=== PATIENT | female | born 1995 | race Caucasian/White ===

== ENCOUNTER 2016-05-16 10:34 | Emergency (ER) | payer OTHER ==
--- NOTE | 2016-05-16 12:32 | ED CLINICAL REPORT ---
Clinical Report - Physicians/Mid Levels [facility] [address] [place] [address] 05/16/2016 10:34 Patient: APRIL GRAMAJO Time Seen: 12:02 May 16 2016. Arrived- By private vehicle. Historian- patient. HISTORY OF PRESENT ILLNESS Chief Complaint: DYSURIA. This started today and still present. The patient has had pain with urination and urgency of urination. The patient has had urinary frequency. Last normal menstrual period was 1 week ago. Sexually active- unprotected sex and heterosexual. Not possible or confirmed. (patient reports dysuria, sensation of incomplete voiding over the last 6 hours. History of similar. Denies any back pain. Denies fevers or chills. Denies any vaginal bleeding.). REVIEW OF SYSTEMS No diarrhea, headache or fever. All systems otherwise negative, except as recorded above. SOCIAL HISTORY Never smoker. No drug use. ADDITIONAL NOTES The nursing notes have been reviewed. PHYSICAL EXAM Vital Signs: 05/16/2016 10:48 BP: 109/64. HR: 73. RR: 18. O2 saturation: 99%. Temp: 98.6 F. Appearance: Alert. No acute distress. HEENT: Normal external inspection. ENT: Pharynx normal. Neck: Neck supple. CVS: Heart sounds normal. Rate normal. Respiratory: No respiratory distress. Breath sounds normal. Chest nontender. Abdomen: Soft and nontender. No abdominal tenderness. The bowel sounds are not abnormal. Neuro: Oriented X 3. LABS, X-RAYS, AND EKG Laboratory Tests: UA-Culture if indicated: (AYAD: 05/16/2016 10:45) ( MsgRcvd 05/16/2016 11:49) Final results Test Result Flag Units (Reference) URINE COLOR YELLOW URINE APPEARANCE CLEAR URINE GLUCOSE NEGATIVE (NEGATIVE) URINE BILIRUBIN NEGATIVE (NEGATIVE) URINE KETONE NEGATIVE (NEGATIVE) URINE SPECIFIC GRAVITY 1.025 (1.010-1.030) URINE PH 6.0 (5.0-8.0) URINE PROTEIN NEGATIVE (NEGATIVE) URINE UROBILINOGEN 0.2 EU/dL (0.2-1.0) URINE NITRITE NEGATIVE (NEGATIVE) URINE BLOOD TRACE-INTACT (NEGATIVE) URINE LEUK ESTERASE NEGATIVE (NEGATIVE) URINE RBC 1-3 rbc/hpf (0-1) URINE WBC 10-15 wbc/hpf (0-1) URINE EPITHELIAL CELLS 3-5 EPI/hpf (0-5) URINE BACTERIA FEW (1+) (NONE SEEN) URINE COMMENT CULTURE INDICATED URINE CULTURES ARE SET-UP BASED ON THE FOLLOWING CRITERIA:POSITIVE NITRITEPOSITIVE LEUKOCYTE ESTERASEGREATER THAN 10 WHITE BLOOD CELLSMODERATE (2+) OR GREATER BACTERIA Urine: (AYAD: 05/16/2016 10:45) ( MsgRcvd 05/16/2016 11:34) Final results Test Result Flag Units (Reference) URINE NEGATIVE . PROGRESS AND PROCEDURES Course of Care: Here in the ER patient with no CVA tenderness, afebrile, abdomen soft non tender. Negative . Signs of acute cystitis. Patient stable. Fall afebrile.. Patient is stable. Physical exam findings are improved. Symptoms better. Patient/family counseled. Disposition: Discharged. CLINICAL IMPRESSION Acute urinary tract infection with cystitis. INSTRUCTIONS Warnings: Further evaluation is necessary. Prescription Medications: Pyridium 200 mg: take 1 orally every 8 hours as needed for urinary problems. Dispense six (6). No refills. Substitution is permissible. Macrobid 100 mg: Take 1 capsule orally every 12 hours for 7 days. No refills. Substitution is permissible. Follow-up: Follow up with your doctor in three days. (Electronically signed by Zuly Parra P.A.-C 05/16/2016 12:59)
--- NOTE | 2016-05-16 12:32 | ED NURSING NOTES ---
Clinical Report - Nurses [facility] [address] [place] [address] 05/16/2016 10:34 Patient: APRIL GRAMAJO TRIAGE Triage time 10:48. Acuity: LEVEL 3. Chief Complaint: PAINFUL URINATION. Alert. No acute distress. --10:52 Akbar Washburn R.N. 10:48 05/16/16. BP: 109/64. HR: 73. RR: 18. O2 saturation: 99%. Temp: 98.6 F. Pain level now 01/12. --10:52 Akbar Washburn R.N. Weight: 44.4 kg stated. Height/Length: 60 inches Per Patient. BMI: 19.1. --10:50 Akbar Washburn R.N. Medications LamoTRIgine ER Oral. --10:50 Akbar Washburn R.N. Allergies No Known Drug Allergy. --10:49 Akbar Washburn R.N. History Arrived by private vehicle. Historian: patient. This started just prior to arrival. SOCIAL HX: No alcohol use or drug use. FALL RISK ASSESSMENT: Fall risk assessment completed. No fall risk identified. NUTRITIONAL RISK ASSESSMENT: The nutritional risk assessment revealed no deficiencies. FUNCTIONAL ASSESSMENT: Functional assessment: no impairments noted. LEARNING NEEDS ASSESSMENT: The learning needs assessment revealed no barriers. --10:52 Akbar Washburn R.N. PROBLEMS: Abdominal Pain. Alcohol Intoxication. Vomiting. Pharyngitis. Immunizations. LNMP - Last Normal Menstrual Period. --10:51 Akbar Washburn R.N. Interventions ID band on patient. --10:52 Akbar Washburn R.N. PHYSICAL ASSESSMENT GENERAL / NEURO / PSYCH: Alert. Oriented X 4. Appears in no acute distress. RESPIRATORY: Respirations not labored. GI / : Abdomen soft. SKIN: Skin is warm and dry. --10:52 Akbar Washburn R.N. NURSING PROGRESS NOTES Two patient identifiers checked. Call light placed in reach. Bed placed in lowest position. --10:52 Akbar Washburn R.N. ( Patient advised of reason for wait). --11:43 Akbar Washburn R.N. 12:37 05/16/2016 Macrobid PO Capsules 100 mg given. --12:42 Akbar Washburn R.N. 12:37 05/16/2016 Pyridium (Phenazopyridine HCl) PO Tablets 100 mg given. --12:42 Akbar Washburn R.N. DISPOSITION / DISCHARGE 12:41 05/16/16. BP: 110/64. HR: 70. RR: 20. O2 saturation: 100%. Temp: 98.6 F. Pain level now 07/13. --12:42 Akbar Washburn R.N. Condition at departure: unchanged. ( Patient given antibiotics and discharge instructions. Pt. states understands.). --12:43 Akbar Washburn R.N. Locked/Released at 05/16/2016 12:44 by Akbar Washburn R.N.
--- NOTE | 2016-05-16 12:32 | ED NURSING NOTES ---
Clinical Report - Nurses [facility] [address] [place] [address] 05/16/2016 10:34 Patient: APRIL GRAMAJO TRIAGE Triage time 10:48. Acuity: LEVEL 3. Chief Complaint: PAINFUL URINATION. Alert. No acute distress. --10:52 Akbar Washburn R.N. 10:48 05/16/16. BP: 109/64. HR: 73. RR: 18. O2 saturation: 99%. Temp: 98.6 F. Pain level now 01/12. --10:52 Akbar Washburn R.N. Weight: 44.4 kg stated. Height/Length: 60 inches Per Patient. BMI: 19.1. --10:50 Akbar Washburn R.N. Medications LamoTRIgine ER Oral. --10:50 Akbar Washburn R.N. Allergies No Known Drug Allergy. --10:49 Akbar Washburn R.N. History Arrived by private vehicle. Historian: patient. This started just prior to arrival. SOCIAL HX: No alcohol use or drug use. FALL RISK ASSESSMENT: Fall risk assessment completed. No fall risk identified. NUTRITIONAL RISK ASSESSMENT: The nutritional risk assessment revealed no deficiencies. FUNCTIONAL ASSESSMENT: Functional assessment: no impairments noted. LEARNING NEEDS ASSESSMENT: The learning needs assessment revealed no barriers. --10:52 Akbar Washburn R.N. PROBLEMS: Abdominal Pain. Alcohol Intoxication. Vomiting. Pharyngitis. Immunizations. LNMP - Last Normal Menstrual Period. --10:51 Akbar Washburn R.N. Interventions ID band on patient. --10:52 Akbar Washburn R.N. PHYSICAL ASSESSMENT GENERAL / NEURO / PSYCH: Alert. Oriented X 4. Appears in no acute distress. RESPIRATORY: Respirations not labored. GI / : Abdomen soft. SKIN: Skin is warm and dry. --10:52 Akbar Washburn R.N. NURSING PROGRESS NOTES Two patient identifiers checked. Call light placed in reach. Bed placed in lowest position. --10:52 Akbar Washburn R.N. ( Patient advised of reason for wait). --11:43 Akbar Washburn R.N. 12:37 05/16/2016 Macrobid PO Capsules 100 mg given. --12:42 Akbar Washburn R.N. 12:37 05/16/2016 Pyridium (Phenazopyridine HCl) PO Tablets 100 mg given. --12:42 Akbar Washburn R.N. DISPOSITION / DISCHARGE 12:41 05/16/16. BP: 110/64. HR: 70. RR: 20. O2 saturation: 100%. Temp: 98.6 F. Pain level now 07/13. --12:42 Akbar Washburn R.N. Condition at departure: unchanged. ( Patient given antibiotics and discharge instructions. Pt. states understands.). --12:43 Akbar Washburn R.N. Locked/Released at 05/16/2016 12:44 by Akbar Washburn R.N.
--- NOTE | 2016-05-16 12:32 | ED CLINICAL REPORT ---
Clinical Report - Physicians/Mid Levels [facility] [address] [place] [address] 05/16/2016 10:34 Patient: APRIL GRAMAJO Time Seen: 12:02 May 16 2016. Arrived- By private vehicle. Historian- patient. HISTORY OF PRESENT ILLNESS Chief Complaint: DYSURIA. This started today and still present. The patient has had pain with urination and urgency of urination. The patient has had urinary frequency. Last normal menstrual period was 1 week ago. Sexually active- unprotected sex and heterosexual. Not possible or confirmed. (patient reports dysuria, sensation of incomplete voiding over the last 6 hours. History of similar. Denies any back pain. Denies fevers or chills. Denies any vaginal bleeding.). REVIEW OF SYSTEMS No diarrhea, headache or fever. All systems otherwise negative, except as recorded above. SOCIAL HISTORY Never smoker. No drug use. ADDITIONAL NOTES The nursing notes have been reviewed. PHYSICAL EXAM Vital Signs: 05/16/2016 10:48 BP: 109/64. HR: 73. RR: 18. O2 saturation: 99%. Temp: 98.6 F. Appearance: Alert. No acute distress. HEENT: Normal external inspection. ENT: Pharynx normal. Neck: Neck supple. CVS: Heart sounds normal. Rate normal. Respiratory: No respiratory distress. Breath sounds normal. Chest nontender. Abdomen: Soft and nontender. No abdominal tenderness. The bowel sounds are not abnormal. Neuro: Oriented X 3. LABS, X-RAYS, AND EKG Laboratory Tests: UA-Culture if indicated: (AYAD: 05/16/2016 10:45) ( MsgRcvd 05/16/2016 11:49) Final results Test Result Flag Units (Reference) URINE COLOR YELLOW URINE APPEARANCE CLEAR URINE GLUCOSE NEGATIVE (NEGATIVE) URINE BILIRUBIN NEGATIVE (NEGATIVE) URINE KETONE NEGATIVE (NEGATIVE) URINE SPECIFIC GRAVITY 1.025 (1.010-1.030) URINE PH 6.0 (5.0-8.0) URINE PROTEIN NEGATIVE (NEGATIVE) URINE UROBILINOGEN 0.2 EU/dL (0.2-1.0) URINE NITRITE NEGATIVE (NEGATIVE) URINE BLOOD TRACE-INTACT (NEGATIVE) URINE LEUK ESTERASE NEGATIVE (NEGATIVE) URINE RBC 1-3 rbc/hpf (0-1) URINE WBC 10-15 wbc/hpf (0-1) URINE EPITHELIAL CELLS 3-5 EPI/hpf (0-5) URINE BACTERIA FEW (1+) (NONE SEEN) URINE COMMENT CULTURE INDICATED URINE CULTURES ARE SET-UP BASED ON THE FOLLOWING CRITERIA:POSITIVE NITRITEPOSITIVE LEUKOCYTE ESTERASEGREATER THAN 10 WHITE BLOOD CELLSMODERATE (2+) OR GREATER BACTERIA Urine: (AYAD: 05/16/2016 10:45) ( MsgRcvd 05/16/2016 11:34) Final results Test Result Flag Units (Reference) URINE NEGATIVE . PROGRESS AND PROCEDURES Course of Care: Here in the ER patient with no CVA tenderness, afebrile, abdomen soft non tender. Negative . Signs of acute cystitis. Patient stable. Fall afebrile.. Patient is stable. Physical exam findings are improved. Symptoms better. Patient/family counseled. Disposition: Discharged. CLINICAL IMPRESSION Acute urinary tract infection with cystitis. INSTRUCTIONS Warnings: Further evaluation is necessary. Prescription Medications: Pyridium 200 mg: take 1 orally every 8 hours as needed for urinary problems. Dispense six (6). No refills. Substitution is permissible. Macrobid 100 mg: Take 1 capsule orally every 12 hours for 7 days. No refills. Substitution is permissible. Follow-up: Follow up with your doctor in three days. (Electronically signed by Zuly Parra P.A.-C 05/16/2016 12:59)
--- NOTE | 2016-05-16 12:32 | ED ORDER SUMMARY ---
..... Patient: APRIL GRAMAJO OrderSheet [facility] VisitID: [id number] [address] [place] [address] 20y, F Registration Date/Time: 05/16/2016 ORDER SHEET Weight: 44.4 kg (stated) Allergies: No Known Drug Allergy GENERAL ORDERS: UA-Culture if indicated Urgent (11:13 05/16/2016 GMarshall R.N. per protocol) (11:13 GMarshall R.N.) Urine Urgent (11:05/16/2016 GMarshall R.N. per protocol) (11:14 GMarshall R.N.) MEDICATION ORDERS: Macrobid PO 100 mg (NOW) (12:14 05/16/2016 EKoroleva P.A.-C) (Ack 12:33 GMarshall R.N.) (12:42 GMarshall R.N.) Pyridium PO 100 mg (NOW) (12:14 05/16/2016 EKoroleva P.A.-C) (Ack 12:33 GMarshall R.N.) (12:42 GMarshall R.N.) IV FLUIDS: ORDER SHEET NOTES: [Electronically signed by Akbar Washburn R.N. (12:44 05/16/2016)] [Electronically signed by Zuly Parra.ACarlos-C (12:59 05/16/2016)] [Electronically locked/signed by Akbar Washburn R.N. (12:44 05/16/2016)]
--- NOTE | 2016-05-16 12:32 | ED ORDER SUMMARY ---
..... Patient: APRIL GRAMAJO OrderSheet [facility] VisitID: [id number] [address] [place] [address] 20y, F Registration Date/Time: 05/16/2016 ORDER SHEET Weight: 44.4 kg (stated) Allergies: No Known Drug Allergy GENERAL ORDERS: UA-Culture if indicated Urgent (11:13 05/16/2016 GMarshall R.N. per protocol) (11:13 GMarshall R.N.) Urine Urgent (11:05/16/2016 GMarshall R.N. per protocol) (11:14 GMarshall R.N.) MEDICATION ORDERS: Macrobid PO 100 mg (NOW) (12:14 05/16/2016 EKoroleva P.A.-C) (Ack 12:33 GMarshall R.N.) (12:42 GMarshall R.N.) Pyridium PO 100 mg (NOW) (12:14 05/16/2016 EKoroleva P.A.-C) (Ack 12:33 GMarshall R.N.) (12:42 GMarshall R.N.) IV FLUIDS: ORDER SHEET NOTES: [Electronically signed by Akbar Washburn R.N. (12:44 05/16/2016)] [Electronically signed by Zuly Parra.ACarlos-C (12:59 05/16/2016)] [Electronically locked/signed by Akbar Washburn R.N. (12:44 05/16/2016)]
--- NOTE | 2016-05-16 12:59 | ED MED RECONCILIATION SUMMARY ---
Patient: APRIL GRAMAJO Medication Reconciliation Report [facility] VisitID: [id number] [address] [place] [address] 20y, F Registration Date/Time: 05/16/2016 Weight: 44.4 kg Height/Length: 60 in. BMI: 19.1 ALLERGIES: No Known Drug Allergy The patient's Home Medications are listed below: THE FOLLOWING MEDICATIONS NEED TO BE RECONCILED: LamoTRIgine ER Oral The source(s) of the original Home Medication information: Not obtained. The following Medications were given to the patient in the Emergency Department: Macrobid [PO] PO 100 mg, administered: 05/16/2016 12:37:00 PM Pyridium [PO] PO 100 mg, administered: 05/16/2016 12:37:00 PM The following Medications were prescribed to the patient: Pyridium 200 mg: take 1 orally every 8 hours as needed for urinary problems. Dispense six (6). No refills. Substitution is permissible. -- Zuly Parra P.APaulette Macrobid 100 mg: Take 1 capsule orally every 12 hours for 7 days. No refills. Substitution is permissible. -- Zuly Parra P.ACarlos-Remedios
--- NOTE | 2016-05-16 12:59 | ED DISCHARGE INSTRUCTIONS ---
Patient: APRIL GRAMAJO General Instructions [facility] VisitID: [id number] [address] [place] [address] 20y, F Registration Date/Time: 05/16/2016 Acute urinary tract infection with cystitis. INSTRUCTIONS Warnings: Further evaluation is necessary. Prescription Medications: Pyridium 200 mg: take 1 orally every 8 hours as needed for urinary problems. Dispense six (6). No refills. Substitution is permissible. Macrobid 100 mg: Take 1 capsule orally every 12 hours for 7 days. No refills. Substitution is permissible. Follow-up: Follow up with your doctor in three days. (Electronically signed by Zuly Parra P.A.-C 05/16/2016 12:59)
--- NOTE | 2016-05-16 12:59 | ED MED RECONCILIATION SUMMARY ---
Patient: APRIL GRAMAJO Medication Reconciliation Report [facility] VisitID: [id number] [address] [place] [address] 20y, F Registration Date/Time: 05/16/2016 Weight: 44.4 kg Height/Length: 60 in. BMI: 19.1 ALLERGIES: No Known Drug Allergy The patient's Home Medications are listed below: THE FOLLOWING MEDICATIONS NEED TO BE RECONCILED: LamoTRIgine ER Oral The source(s) of the original Home Medication information: Not obtained. The following Medications were given to the patient in the Emergency Department: Macrobid [PO] PO 100 mg, administered: 05/16/2016 12:37:00 PM Pyridium [PO] PO 100 mg, administered: 05/16/2016 12:37:00 PM The following Medications were prescribed to the patient: Pyridium 200 mg: take 1 orally every 8 hours as needed for urinary problems. Dispense six (6). No refills. Substitution is permissible. -- Zuly Parra P.APaulette Macrobid 100 mg: Take 1 capsule orally every 12 hours for 7 days. No refills. Substitution is permissible. -- Zuly Parra P.ACarlos-Remedios
--- NOTE | 2016-05-16 12:59 | ED DISCHARGE INSTRUCTIONS ---
Patient: APRIL GRAMAJO General Instructions [facility] VisitID: [id number] [address] [place] [address] 20y, F Registration Date/Time: 05/16/2016 Acute urinary tract infection with cystitis. INSTRUCTIONS Warnings: Further evaluation is necessary. Prescription Medications: Pyridium 200 mg: take 1 orally every 8 hours as needed for urinary problems. Dispense six (6). No refills. Substitution is permissible. Macrobid 100 mg: Take 1 capsule orally every 12 hours for 7 days. No refills. Substitution is permissible. Follow-up: Follow up with your doctor in three days. (Electronically signed by Zuly Parra P.A.-C 05/16/2016 12:59)
--- NOTE | 2016-05-16 12:59 | ED MAR SUMMARY ---
..... Medication Administration Record [facility] [address] [place] [address] Patient: APRIL GRAMAJO Visit ID: [id number] 20y, F Weight: 44.4 kg Height/Length: 60 in BMI: 19.1 ALLERGIES: No Known Drug Allergy Given 12:05/16/2016 Akbar Washburn R.N. Medication Administered: MACROBID [PO], Dose: 100 mg Capsules PO. Medication Ordered: Macrobid PO 100 mg (NOW). Given 12:05/16/2016 Akbar Washburn RCarlosN. Medication Administered: PYRIDIUM [PO] (PHENAZOPYRIDINE HCL), Dose: 100 mg Tablets PO. Medication Ordered: Pyridium PO 100 mg (NOW).
--- NOTE | 2016-05-16 12:59 | ED MAR SUMMARY ---
..... Medication Administration Record [facility] [address] [place] [address] Patient: APRIL GRAMAJO Visit ID: [id number] 20y, F Weight: 44.4 kg Height/Length: 60 in BMI: 19.1 ALLERGIES: No Known Drug Allergy Given 12:05/16/2016 Akbar Washburn R.N. Medication Administered: MACROBID [PO], Dose: 100 mg Capsules PO. Medication Ordered: Macrobid PO 100 mg (NOW). Given 12:05/16/2016 Akbar Washburn RCarlosN. Medication Administered: PYRIDIUM [PO] (PHENAZOPYRIDINE HCL), Dose: 100 mg Tablets PO. Medication Ordered: Pyridium PO 100 mg (NOW).
== END 2016-05-16 12:50 | disposition home or self-care (01) ==
LOC: ED SRH 10:34
DX: N30.00 Acute cystitis without hematuria (principal)
CPT/HCPCS: 90004; 90469; 93070

== ENCOUNTER 2016-08-11 16:54 | Emergency (ER) | payer OTHER ==
--- NOTE | 2016-08-11 18:11 | ED NURSING NOTES ---
Clinical Report - Nurses [facility] [address] [place] [address] 08/11/2016 16:55 Patient: APRIL GRAMAJO TRIAGE Triage time 17:Aug 11 2016. Acuity: LEVEL 3. Chief Complaint: ABDOMINAL PAIN and NAUSEA. Alert. SEPSIS SCREEN: Sepsis Screen. Negative (no infection suspected/documented). FRANCISCO COMA SCORE: [place] Coma Scale: 15- eyes open spontaneously (4); best verbal response- oriented x 4 (5); best motor response- obeys commands (6). --17:19 Sage Hein R.N. 17:05 08/11/16. BP: 102/84. HR: 94. RR: 16. O2 saturation: 99%. Temp: 99.1 F. Pain level now: 7/10. Additional comments: Intermittent epigastric pain, which is stabbing when she gets it. --17:19 Sage Hein R.N. Weight: 43 kg stated. Height/Length: 60 inches Per Patient. BMI: 18.5. --17:17 Sage Hein R.N. Medications LamoTRIgine ER Oral (Tablet Extended Release 24 Hour 100 mg) 1 tablet. --17:13 Sage Hein R.N. BuPROPion HCl Oral 150 mg, daily. --17:13 Sage Hein R.N. MetroNIDAZOLE Oral 500 mg, 2x a day. --17:14 Sage Hein R.N. Allergies No Known Drug Allergy. --17:13 Sage Hein R.N. Medication/allergy information source: the patient. --17:19 Sage Hein R.N. History Arrived by private vehicle. Historian: patient. Accompanied by brother. Primary physician (none). ( Epigastric Abdominal Pain associated with nausea. [facility] and tested positive for Chlamydia and placed on Azithromycin and Flagyl, which she picked up and started taking yesterday. Pt states that she didn't used protection last time that she had sex and did the "Plan B" 08/04/16 and she has had some spotting since then.). Onset. (about 3 days ago). She has had nausea and abdominal pain. 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 Treatment CLERICAL SUPERVISOR: (Taking prescribed antibiotics). PAST MEDICAL HX: Last normal menstrual period was 2 weeks ago. SOCIAL HX: Never smoker. No alcohol use or drug use. No recent travel. No infectious disease exposure. ABUSE ASSESSMENT: No report of abuse. FALL RISK ASSESSMENT: Fall risk assessment completed. No fall risk identified. NUTRITIONAL RISK ASSESSMENT: The nutritional risk assessment revealed no deficiencies. FUNCTIONAL ASSESSMENT: Functional assessment: no impairments noted. LEARNING NEEDS ASSESSMENT: The learning needs assessment revealed no barriers. SKIN INTEGRITY ASSESSMENT: Skin integrity risk assessment completed. No skin integrity risk identified. --17:19 Sage Hein R.N. PAST MEDICAL HX: Immunizations: status is unknown. --17:20 Sage Hein R.N. PROBLEMS: UTI - Urinary Tract Infection. Abdominal Pain. Alcohol Intoxication. Vomiting. Pharyngitis. Immunizations. LNMP - Last Normal Menstrual Period. --17:12 Sage Hein R.N. Interventions ID band on patient. To room. --17:19 Sage Hein R.N. PHYSICAL ASSESSMENT Ambulatory to room. GENERAL / NEURO / PSYCH: Alert. Oriented X 4. Appears in pain. HEENT: Mucous membranes are pink. RESPIRATORY: Respirations not labored. CVS: Cardiac rhythm: (RRR). GI / : Abdomen soft and nontender. SKIN: Skin is warm and dry. --17:20 Sage Hein R.N. NURSING PROGRESS NOTES Monitoring of patient in place. Patient gowned. Reassurance given to the patient. Patient identifiers checked. Call light placed in reach. Side rails up x 1. Bed placed in lowest position. Brakes of bed on. Patient ready for evaluation- chart flagged and ED physician notified. --17:20 Sage Hein R.N. 17:37 08/11/2016 Zofran ODT (Ondansetron) PO Oral Disintegrating Tablets 4 mg given. Allergies verified and confirmed 5 rights. --17:37 Vee Mitchell R.N. DISPOSITION / DISCHARGE 18:30 08/11/16. Condition at departure: improved. The goals identified in the patient's plan of care were met. No learning barriers present. Discharge instructions provided and reviewed with the patient. Reviewed warnings. Reviewed medication(s). Treatments reviewed. Patient verbalized understanding. Written instructions provided in Azeri. The patient was discharged by the physician. She was discharged home and accompanied by family. She left the Emergency Department ambulatory and via private vehicle. Family member driving. FALL RISK ASSESSMENT: Fall risk assessment completed. No fall risk identified. --18:30 Deven Calvin R.N. 18:29 08/11/16. BP: 125/72. HR: 79. RR: 17. O2 saturation: 100% on room air. Temp: 98.2 F (oral). Pain level now: 0/10. --18:30 Deven Calvin R.N. 18:30 08/11/16. Departure time: 18:30. --18:30 Deven Calvin R.N. Locked/Released at 08/11/2016 18:31 by Deven Calvin R.N.
--- NOTE | 2016-08-11 18:11 | ED CLINICAL REPORT ---
Clinical Report - Physicians/Mid Levels [facility] [address] [place] [address] 08/11/2016 16:55 Patient: APRIL GRAMAJO Time Seen: 16:58; initial patient contact. Arrived- By private vehicle. Historian- patient. HISTORY OF PRESENT ILLNESS Chief Complaint: ABDOMINAL PAIN. At its maximum, severity described as mild. When seen in the E.D., severity described as mild. Modifying factors. Not worsened by anything. Not relieved by anything. It is described as "pain". No radiation. It is described as located in the epigastric area. This started today. The patient has had nausea. No vomiting or diarrhea. Similar symptoms previously: Many times. Recent medical care: The patient was seen recently in a clinic (Started single dose of Azithro and also Flagyl today.). REVIEW OF SYSTEMS No constipation, pain with urination, urinary frequency, fever or chills. All systems otherwise negative, except as recorded above. PAST HISTORY UTI - Urinary Tract Infection. Abdominal Pain. Alcohol Intoxication. Vomiting. Pharyngitis. Medications: MetroNIDAZOLE Oral 500 mg, 2x a day. BuPROPion HCl Oral 150 mg, daily. LamoTRIgine ER Oral (Tablet Extended Release 24 Hour 100 mg) 1 tablet. Allergies: No Known Drug Allergy. SOCIAL HISTORY Never smoker. No alcohol use or drug use. ADDITIONAL NOTES The nursing notes have been reviewed. PHYSICAL EXAM Vital Signs: 08/11/2016 17:05 BP: 102/84. HR: 94. RR: 16. O2 saturation: 99%. Temp: 99.1 F. Pain level now: 7/10. Have been reviewed as normal. Appearance: Alert. Oriented X3. No acute distress. Eyes: Eyes normal inspection. No scleral icterus. ENT: Pharynx normal. CVS: Normal heart rate and rhythm. Heart sounds normal. Respiratory: No respiratory distress. Breath sounds normal. Abdomen: Soft. Mild tenderness in the epigastric area. No guarding, rebound tenderness or Reddy's sign present. Bowel sounds normal. No organomegaly. No mass. Back: Normal inspection. No CVA tenderness. Skin: Skin warm. Normal skin color. Neuro: Oriented X 3. PROGRESS AND PROCEDURES Course of Care: Zofran 4 mg ODT PO given. Physical exam findings are improved. Symptoms much better. Disposition: Discharged home in good and improved condition. Condition: good. CLINICAL IMPRESSION Vomiting with nausea. No dehydration or volume depletion. Not intractable or bilious. INSTRUCTIONS Drink plenty of fluids. No alcohol. Your Current Medications: CONTINUE TAKING THE FOLLOWING MEDICATIONS: BuPROPion HCl Oral : 150 mg daily. LamoTRIgine ER Oral : Tablet Extended Release 24 Hour 100 mg, 1 tablet. MetroNIDAZOLE Oral : 500 mg 2x a day. Prescription Medications: Zofran (orally disintegrating tablets) 4 mg: take 1 orally every 6 hours as needed for nausea and vomiting Follow-up: Follow up with your doctor in about two days if not well. Call for an appointment. Screening today revealed the patient's blood pressure to be in the normal range. (Electronically signed by Kings Lyle Dr. 08/11/2016 18:18)
--- NOTE | 2016-08-11 18:11 | ED NURSING NOTES ---
Clinical Report - Nurses [facility] [address] [place] [address] 08/11/2016 16:55 Patient: APRIL GRAMAJO TRIAGE Triage time 17:Aug 11 2016. Acuity: LEVEL 3. Chief Complaint: ABDOMINAL PAIN and NAUSEA. Alert. SEPSIS SCREEN: Sepsis Screen. Negative (no infection suspected/documented). FRANCISCO COMA SCORE: [place] Coma Scale: 15- eyes open spontaneously (4); best verbal response- oriented x 4 (5); best motor response- obeys commands (6). --17:19 Sage Hein R.N. 17:05 08/11/16. BP: 102/84. HR: 94. RR: 16. O2 saturation: 99%. Temp: 99.1 F. Pain level now: 7/10. Additional comments: Intermittent epigastric pain, which is stabbing when she gets it. --17:19 Sage Hein R.N. Weight: 43 kg stated. Height/Length: 60 inches Per Patient. BMI: 18.5. --17:17 Sage Hein R.N. Medications LamoTRIgine ER Oral (Tablet Extended Release 24 Hour 100 mg) 1 tablet. --17:13 Sage Hein R.N. BuPROPion HCl Oral 150 mg, daily. --17:13 Sage Hein R.N. MetroNIDAZOLE Oral 500 mg, 2x a day. --17:14 Sage Hein R.N. Allergies No Known Drug Allergy. --17:13 Sage Hein R.N. Medication/allergy information source: the patient. --17:19 Sage Hein R.N. History Arrived by private vehicle. Historian: patient. Accompanied by brother. Primary physician (none). ( Epigastric Abdominal Pain associated with nausea. [facility] and tested positive for Chlamydia and placed on Azithromycin and Flagyl, which she picked up and started taking yesterday. Pt states that she didn't used protection last time that she had sex and did the "Plan B" 08/04/16 and she has had some spotting since then.). Onset. (about 3 days ago). She has had nausea and abdominal pain. 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 PAST MEDICAL HX: Last normal menstrual period was 2 weeks ago. SOCIAL HX: Never smoker. No alcohol use or drug use. No recent travel. No infectious disease exposure. ABUSE ASSESSMENT: No report of abuse. FALL RISK ASSESSMENT: Fall risk assessment completed. No fall risk identified. NUTRITIONAL RISK ASSESSMENT: The nutritional risk assessment revealed no deficiencies. FUNCTIONAL ASSESSMENT: Functional assessment: no impairments noted. LEARNING NEEDS ASSESSMENT: The learning needs assessment revealed no barriers. SKIN INTEGRITY ASSESSMENT: Skin integrity risk assessment completed. No skin integrity risk identified. --17:19 Sage Hein R.N. PAST MEDICAL HX: Immunizations: status is unknown. --17:20 Sage Hein R.N. PROBLEMS: UTI - Urinary Tract Infection. Abdominal Pain. Alcohol Intoxication. Vomiting. Pharyngitis. Immunizations. LNMP - Last Normal Menstrual Period. --17:12 Sage Hein R.N. Interventions ID band on patient. To room. --17:19 Sage Hein R.N. PHYSICAL ASSESSMENT Ambulatory to room. GENERAL / NEURO / PSYCH: Alert. Oriented X 4. Appears in pain. HEENT: Mucous membranes are pink. RESPIRATORY: Respirations not labored. CVS: Cardiac rhythm: (RRR). GI / : Abdomen soft and nontender. SKIN: Skin is warm and dry. --17:20 Sage Hein R.N. NURSING PROGRESS NOTES Monitoring of patient in place. Patient gowned. Reassurance given to the patient. Patient identifiers checked. Call light placed in reach. Side rails up x 1. Bed placed in lowest position. Brakes of bed on. Patient ready for evaluation- chart flagged and ED physician notified. --17:20 Sage Hein R.N. 17:37 08/11/2016 Zofran ODT (Ondansetron) PO Oral Disintegrating Tablets 4 mg given. Allergies verified and confirmed 5 rights. --17:37 Vee Mitchell R.N. DISPOSITION / DISCHARGE 18:30 08/11/16. Condition at departure: improved. The goals identified in the patient's plan of care were met. No learning barriers present. Discharge instructions provided and reviewed with the patient. Reviewed warnings. Reviewed medication(s). Treatments reviewed. Patient verbalized understanding. Written instructions provided in Persian. The patient was discharged by the physician. She was discharged home and accompanied by family. She left the Emergency Department ambulatory and via private vehicle. Family member driving. FALL RISK ASSESSMENT: Fall risk assessment completed. No fall risk identified. --18:30 Deven Calvin R.N. 18:29 08/11/16. BP: 125/72. HR: 79. RR: 17. O2 saturation: 100% on room air. Temp: 98.2 F (oral). Pain level now: 0/10. --18:30 Deven Calvin R.N. 18:30 08/11/16. Departure time: 18:30. --18:30 Deven Calvin R.N. Locked/Released at 08/11/2016 18:31 by Deven Calvin R.N.
--- NOTE | 2016-08-11 18:11 | ED CLINICAL REPORT ---
Clinical Report - Physicians/Mid Levels [facility] [address] [place] [address] 08/11/2016 16:55 Patient: APRIL GRAMAJO Time Seen: 16:58; initial patient contact. Arrived- By private vehicle. Historian- patient. HISTORY OF PRESENT ILLNESS Chief Complaint: ABDOMINAL PAIN. At its maximum, severity described as mild. When seen in the E.D., severity described as mild. Modifying factors. Not worsened by anything. Not relieved by anything. It is described as "pain". No radiation. It is described as located in the epigastric area. This started today. The patient has had nausea. No vomiting or diarrhea. Similar symptoms previously: Many times. Recent medical care: The patient was seen recently in a clinic (Started single dose of Azithro and also Flagyl today.). REVIEW OF SYSTEMS No constipation, pain with urination, urinary frequency, fever or chills. All systems otherwise negative, except as recorded above. PAST HISTORY UTI - Urinary Tract Infection. Abdominal Pain. Alcohol Intoxication. Vomiting. Pharyngitis. Medications: MetroNIDAZOLE Oral 500 mg, 2x a day. BuPROPion HCl Oral 150 mg, daily. LamoTRIgine ER Oral (Tablet Extended Release 24 Hour 100 mg) 1 tablet. Allergies: No Known Drug Allergy. SOCIAL HISTORY Never smoker. No alcohol use or drug use. ADDITIONAL NOTES The nursing notes have been reviewed. PHYSICAL EXAM Vital Signs: 08/11/2016 17:05 BP: 102/84. HR: 94. RR: 16. O2 saturation: 99%. Temp: 99.1 F. Pain level now: 7/10. Have been reviewed as normal. Appearance: Alert. Oriented X3. No acute distress. Eyes: Eyes normal inspection. No scleral icterus. ENT: Pharynx normal. CVS: Normal heart rate and rhythm. Heart sounds normal. Respiratory: No respiratory distress. Breath sounds normal. Abdomen: Soft. Mild tenderness in the epigastric area. No guarding, rebound tenderness or Reddy's sign present. Bowel sounds normal. No organomegaly. No mass. Back: Normal inspection. No CVA tenderness. Skin: Skin warm. Normal skin color. Neuro: Oriented X 3. PROGRESS AND PROCEDURES Course of Care: Zofran 4 mg ODT PO given. Physical exam findings are improved. Symptoms much better. Disposition: Discharged home in good and improved condition. Condition: good. CLINICAL IMPRESSION Vomiting with nausea. No dehydration or volume depletion. Not intractable or bilious. INSTRUCTIONS Drink plenty of fluids. No alcohol. Your Current Medications: CONTINUE TAKING THE FOLLOWING MEDICATIONS: BuPROPion HCl Oral : 150 mg daily. LamoTRIgine ER Oral : Tablet Extended Release 24 Hour 100 mg, 1 tablet. MetroNIDAZOLE Oral : 500 mg 2x a day. Prescription Medications: Zofran (orally disintegrating tablets) 4 mg: take 1 orally every 6 hours as needed for nausea and vomiting Follow-up: Follow up with your doctor in about two days if not well. Call for an appointment. Screening today revealed the patient's blood pressure to be in the normal range. (Electronically signed by Kings Lyle Dr. 08/11/2016 18:18)
--- NOTE | 2016-08-11 18:11 | ED ORDER SUMMARY ---
..... Patient: APRIL GRAMAJO OrderSheet [facility] VisitID: [id number] [address] [place] [address] 20y, F Registration Date/Time: 08/11/2016 ORDER SHEET Weight: 43.0 kg (stated) Allergies: No Known Drug Allergy GENERAL ORDERS: MEDICATION ORDERS: Zofran ODT PO 4 mg (NOW) (17:32 08/11/2016 Iwona Mancini) (17:37 Thaddeus R.NCarlos) IV FLUIDS: ORDER SHEET NOTES: [Electronically signed by Kings Lyle Dr. (18:18 08/11/2016)] [Electronically signed by Deven Calvin R.N. (18:31 08/11/2016)] [Electronically locked/signed by Deven Calvin R.N. (18:31 08/11/2016)]
--- NOTE | 2016-08-11 18:11 | ED ORDER SUMMARY ---
..... Patient: APRIL GRAMAJO OrderSheet [facility] VisitID: [id number] [address] [place] [address] 20y, F Registration Date/Time: 08/11/2016 ORDER SHEET Weight: 43.0 kg (stated) Allergies: No Known Drug Allergy GENERAL ORDERS: MEDICATION ORDERS: Zofran ODT PO 4 mg (NOW) (17:32 08/11/2016 Iwona Mancini) (17:37 Thaddeus R.NCarlos) IV FLUIDS: ORDER SHEET NOTES: [Electronically signed by Kings Lyle Dr. (18:18 08/11/2016)] [Electronically signed by Deven Calvin R.N. (18:31 08/11/2016)] [Electronically locked/signed by Deven Calvin R.N. (18:31 08/11/2016)]
--- NOTE | 2016-08-11 18:31 | ED DISCHARGE INSTRUCTIONS ---
Patient: APRIL GRAMAJO General Instructions [facility] VisitID: [id number] [address] [place] [address] 20y, F Registration Date/Time: 08/11/2016 Vomiting with nausea. No dehydration or volume depletion. Not intractable or bilious. INSTRUCTIONS Drink plenty of fluids. No alcohol. Your Current Medications: CONTINUE TAKING THE FOLLOWING MEDICATIONS: BuPROPion HCl Oral : 150 mg daily. LamoTRIgine ER Oral : Tablet Extended Release 24 Hour 100 mg, 1 tablet. MetroNIDAZOLE Oral : 500 mg 2x a day. Prescription Medications: Zofran (orally disintegrating tablets) 4 mg: take 1 orally every 6 hours as needed for nausea and vomiting Follow-up: Follow up with your doctor in about two days if not well. Call for an appointment. Screening today revealed the patient's blood pressure to be in the normal range. ADDITIONAL INFORMATION Vomiting [6Yr-Adult] Vomiting is a common symptom that may be due to different causes. These include gastroenteritis ("stomach flu"), food poisoning and gastritis. There are other more serious causes of vomiting which may be hard to diagnose early in the illness. Therefore, it is important to watch for the warning signs listed below. The main danger from repeated vomiting is dehydration. This is due to excess loss of water and minerals from the body. When this occurs, body fluids must be replaced. Home Care: If symptoms are severe, rest at home for the next 24 hours. You may use acetaminophen (Tylenol) or ibuprofen (Motrin, Advil) to control fever, unless another medicine was prescribed. [NOTE : If you have chronic liver or kidney disease or ever had a stomach ulcer or GI bleeding, talk with your doctor before using these medicines.] (Aspirin should never be used in anyone under 18 years of age who is ill with a fever. It may cause severe liver damage.) Avoid tobacco and alcohol use, which may worsen your symptoms. If medicines for vomiting were prescribed, take as directed. Once vomiting stops, then follow these guidelines: During The First 12-24 Hours follow the diet below: FRUIT JUICES: Apple, grape juice, clear fruit drinks, and electrolyte replacement drinks. BEVERAGES: Soft drinks without caffeine; mineral water (plain or flavored), decaffeinated tea and coffee. SOUPS: Clear broth, consomm and bouillon DESSERTS: Plain gelatin, popsicles and fruit juice bars. As you feel better, you may add 6-8 ounces of yogurt per day. During The Next 24 Hours you may add the following to the above: Hot cereal, plain toast, bread, rolls, crackers Plain noodles, rice, mashed potatoes, chicken noodle or rice soup Unsweetened canned fruit (avoid pineapple), bananas Limit caffeine and chocolate. No spices or seasonings except salt. During The Next 24 Hours Gradually resume a normal diet, as you feel better and your symptoms lessen. Follow Up with your doctor as advised if you are not improving over the next 2-3 days. Get Prompt Medical Attention if any of the following occur: Constant right-sided lower abdominal pain or increasing general abdominal pain Continued vomiting (unable to keep liquids down) for 24 hours Frequent diarrhea (more than 5 times a day); blood (red or black color) or mucus in diarrhea Reduced urine output or extreme thirst Weakness, dizziness or fainting Unusually drowsy or confused Fever of 100.4F (38C) oral or higher, not better with fever medication Yellow color of the eyes or skin You have been given the following additional information: Vomiting (6Y-Adult) (Electronically signed by Kings Lyle Dr. 08/11/2016 18:18)
--- NOTE | 2016-08-11 18:32 | ED MAR SUMMARY ---
..... Medication Administration Record [facility] [address] [place] [address] Patient: APRIL GRAMAJO Visit ID: [id number] 20y, F Weight: 43.0 kg Height/Length: 60 in BMI: 18.5 ALLERGIES: No Known Drug Allergy Given 17:37 08/11/2016 Vee Mitchell R.N. Medication Administered: ZOFRAN ODT [PO] (ONDANSETRON), Dose: 4 mg Oral Disintegrating Tablets PO. Medication Ordered: Zofran ODT PO 4 mg (NOW).
--- NOTE | 2016-08-11 18:32 | ED MED RECONCILIATION SUMMARY ---
Patient: APRIL GRAMAJO Medication Reconciliation Report [facility] VisitID: [id number] [address] [place] [address] 20y, F Registration Date/Time: 08/11/2016 Weight: 43.0 kg Height/Length: 60 in. BMI: 18.5 ALLERGIES: No Known Drug Allergy The patient's Home Medications are listed below: CONTINUE TAKING THE FOLLOWING MEDICATIONS: BuPROPion HCl Oral 150 mg, daily LamoTRIgine ER Oral (100 mg) 1 tablet MetroNIDAZOLE Oral 500 mg, 2x a day The source(s) of the original Home Medication information: patient The following Medications were given to the patient in the Emergency Department: Zofran ODT [PO] PO 4 mg, administered: 08/11/2016 5:37:00 PM The following Medications were prescribed to the patient: Zofran (orally disintegrating tablets) 4 mg: take 1 orally every 6 hours as needed for nausea and vomiting -- Kings Lyle Dr.
--- NOTE | 2016-08-11 18:32 | ED MAR SUMMARY ---
..... Medication Administration Record [facility] [address] [place] [address] Patient: APRIL GRAMAJO Visit ID: [id number] 20y, F Weight: 43.0 kg Height/Length: 60 in BMI: 18.5 ALLERGIES: No Known Drug Allergy Given 17:37 08/11/2016 Vee Mitchell R.N. Medication Administered: ZOFRAN ODT [PO] (ONDANSETRON), Dose: 4 mg Oral Disintegrating Tablets PO. Medication Ordered: Zofran ODT PO 4 mg (NOW).
--- NOTE | 2016-08-11 18:32 | ED MED RECONCILIATION SUMMARY ---
Patient: APRIL GRAMAJO Medication Reconciliation Report [facility] VisitID: [id number] [address] [place] [address] 20y, F Registration Date/Time: 08/11/2016 Weight: 43.0 kg Height/Length: 60 in. BMI: 18.5 ALLERGIES: No Known Drug Allergy The patient's Home Medications are listed below: CONTINUE TAKING THE FOLLOWING MEDICATIONS: BuPROPion HCl Oral 150 mg, daily LamoTRIgine ER Oral (100 mg) 1 tablet MetroNIDAZOLE Oral 500 mg, 2x a day The source(s) of the original Home Medication information: patient The following Medications were given to the patient in the Emergency Department: Zofran ODT [PO] PO 4 mg, administered: 08/11/2016 5:37:00 PM The following Medications were prescribed to the patient: Zofran (orally disintegrating tablets) 4 mg: take 1 orally every 6 hours as needed for nausea and vomiting -- Kings Lyle Dr.
== END 2016-08-11 18:30 | disposition home or self-care (01) ==
LOC: ED SRH 16:54
DX: R11.2 Nausea with vomiting, unspecified (principal); R10.13 Epigastric pain; Z79.899 Other long term (current) drug therapy